=== PATIENT | female | born 1940 | race Caucasian/White ===

== ENCOUNTER → 2016-12-21 | Outpatient (CLI) | payer MEDICARE, BC | END | disposition home or self-care (01) | LOC: WOUND 14:00 | PROVIDERS: ATTEND Internal Medicine | DX: S81.801A Unspecified open wound, right lower leg, initial encounter (principal); I10 Essential (primary) hypertension; X58.XXXA Exposure to other specified factors, initial encounter; Y93.89 Activity, other specified; Y92.89 Other specified places as the place of occurrence of the external cause; Y99.8 Other external cause status | CPT/HCPCS: 97597; 97598; G0463; WOU0463 ==

== ENCOUNTER → 2016-12-26 | Outpatient (CLI) | payer MEDICARE, BC | END | disposition home or self-care (01) | LOC: WOUND 13:00 | PROVIDERS: ATTEND Internal Medicine | DX: S81.811D Laceration without foreign body, right lower leg, subsequent encounter (principal); I10 Essential (primary) hypertension; Z96.641 Presence of right artificial hip joint; Z90.710 Acquired absence of both cervix and uterus; Z98.49 Cataract extraction status, unspecified eye; X58.XXXD Exposure to other specified factors, subsequent encounter; Y92.89 Other specified places as the place of occurrence of the external cause; Y99.8 Other external cause status | CPT/HCPCS: 97597 ==

== ENCOUNTER → 2017-01-02 | Outpatient (CLI) | payer MEDICARE, BC | END | disposition home or self-care (01) | LOC: WOUND 15:33 | PROVIDERS: ATTEND Internal Medicine | DX: S81.801D Unspecified open wound, right lower leg, subsequent encounter (principal); I10 Essential (primary) hypertension; Z90.710 Acquired absence of both cervix and uterus; X58.XXXD Exposure to other specified factors, subsequent encounter | CPT/HCPCS: 11042 ==

== ENCOUNTER → 2017-01-16 | Outpatient (CLI) | payer MEDICARE, BC | END | disposition home or self-care (01) | LOC: WOUND 15:39 | PROVIDERS: ATTEND Internal Medicine | DX: S81.801D Unspecified open wound, right lower leg, subsequent encounter (principal); I10 Essential (primary) hypertension; Z90.710 Acquired absence of both cervix and uterus; Z96.641 Presence of right artificial hip joint; X58.XXXD Exposure to other specified factors, subsequent encounter | CPT/HCPCS: G0463; WOU0463 ==

== ENCOUNTER 2017-05-03 11:13 | Emergency (ER) | payer MEDICARE, BC ==
[~2017-05-03] VITALS: Ht 160 cm; Wt 64.4 kg
[2017-05-03 13:04] LABS: BASOPHILS # (AUTO) 0.02 x10^3/uL (0-0.1); BASOPHILS % (AUTO) 1 % (0-1); EOSINOPHILS % (AUTO) 2 % (1-7); LYMPHOCYTES # (AUTO) 1.07 x10^3/uL (1-3.4); LYMPHOCYTES % (AUTO) 25 % (22-44); MD NO; MEAN CORPUSCULAR HEMOGLOBIN 32.4 pg (27.0-34.8); MEAN CORPUSCULAR HGB CONC 33.6 g/dL (32.4-35.8); MEAN CORPUSCULAR VOLUME 96.4 fL (80-100); MEAN PLATELET VOLUME 11.1 fL (7.4-10.4); MONOCYTES # (AUTO) 0.44 x10^3/uL (0.2-0.8); MONOCYTES % (AUTO) 10 % (2-9); NEUTROPHILS # (AUTO) 2.63 x10^3/uL (1.8-6.8); NEUTROPHILS % (AUTO) 62 % (42-75); PLATELET COUNT 114 x10^3/uL (130-400); RED BLOOD COUNT 4.89 x10^6/uL (3.82-5.3); RED CELL DISTRIBUTION WIDTH 13.3 % (9.6-15.2)
[2017-05-03] MEDS ORDERED: CLON0.3T47 PO (13:07)
[2017-05-03 13:14] LABS: ALBUMIN 3.5 g/dL (3.4-5.0); ANION GAP 7 mmol/L (5-15); CALCIUM 9.5 mg/dL (8.5-10.1); CHLORIDE 103 mmol/L (98-107); CREATININE 0.86 mg/dL (0.55-1.02)
[2017-05-03 13:18] LABS: TROPONIN I < 0.015 ng/mL (0.000-0.045)
[2017-05-03 14:34] VITALS: BP 177/75
== END 2017-05-03 14:37 | disposition home or self-care (01) ==
LOC: ED 14:04
DX: I10 Essential (primary) hypertension (principal)
CPT/HCPCS: 36415; 70450; 71045; 80048; 82040; 84484; 85025; 93005; 99285

== ENCOUNTER 2017-05-06 03:46 | Emergency (ER) | payer MEDICARE, BC ==
[~2017-05-06] VITALS: Ht 160 cm; Wt 64.0 kg
[~2017-05-06 03:46] MED LIST: CLON0.3T47 PO
[2017-05-06] MEDS ORDERED: VALS1TAB24 PO (05:00)
[2017-05-06] MEDS ORDERED: ASPIRIN 81 MG TABLET CHEW ONE (05:23)
[2017-05-06] MEDS ORDERED: ASPIRIN 81 MG TABLET CHEW PO ONE (05:30)
[2017-05-06 05:35] LABS: BASOPHILS # (AUTO) 0.02 x10^3/uL (0-0.1); BASOPHILS % (AUTO) 0 % (0-1); EOSINOPHILS # (AUTO) 0.13 x10^3/uL (0-0.4); EOSINOPHILS % (AUTO) 3 % (1-7); LYMPHOCYTES # (AUTO) 1.09 x10^3/uL (1-3.4); LYMPHOCYTES % (AUTO) 25 % (22-44); MD NO; MEAN CORPUSCULAR HGB CONC 34.1 g/dL (32.4-35.8); MEAN CORPUSCULAR VOLUME 96.9 fL (80-100); MEAN PLATELET VOLUME 11.1 fL (7.4-10.4); MONOCYTES # (AUTO) 0.48 x10^3/uL (0.2-0.8); MONOCYTES % (AUTO) 11 % (2-9); NEUTROPHILS # (AUTO) 2.73 x10^3/uL (1.8-6.8); NEUTROPHILS % (AUTO) 61 % (42-75); PLATELET COUNT 110 x10^3/uL (130-400); RED CELL DISTRIBUTION WIDTH 13.6 % (9.6-15.2)
[2017-05-06 05:43] LABS: INTERNATIONAL NORMALIZED RATIO 1.07 (0.93-1.1); PROTHROMBIN TIME 11.1 Seconds (9.6-11.5)
[2017-05-06 05:46] LABS: ALANINE AMINOTRANSFERASE 30 U/L (12-78); ALBUMIN 3.5 g/dL (3.4-5.0); ANION GAP 7 mmol/L (5-15); CALCIUM 9.2 mg/dL (8.5-10.1); CHLORIDE 103 mmol/L (98-107); CREATININE 0.95 mg/dL (0.55-1.02)
[2017-05-06 05:50] LABS: ALKALINE PHOSPHATASE 55 U/L (45-117); BILIRUBIN,TOTAL 0.7 mg/dL (0.2-1.0); TOTAL PROTEIN 7.2 g/dL (6.4-8.2); TROPONIN I < 0.015 ng/mL (0.000-0.045)
[2017-05-06 08:59] VITALS: BP 119/60
== END 2017-05-06 09:00 | disposition home or self-care (01) ==
LOC: ED 05:05
DX: I10 Essential (primary) hypertension (principal); Z90.710 Acquired absence of both cervix and uterus
CPT/HCPCS: 36415; 71045; 80053; 83880; 84484; 85025; 85610; 85730; 93005; 99285

== ENCOUNTER → 2017-10-02 | Outpatient (CLI) | payer MEDICARE, BC ==
[~2017-10-02] MED LIST changes: +VALS1TAB24 PO
== END | disposition home or self-care (01) ==
LOC: WOUND 13:04
PROVIDERS: ATTEND Internal Medicine
DX: L97.212 Non-pressure chronic ulcer of right calf with fat layer exposed (principal); I10 Essential (primary) hypertension; Z96.651 Presence of right artificial knee joint; Z90.710 Acquired absence of both cervix and uterus
CPT/HCPCS: 97597; G0463; WOU0463

== ENCOUNTER 2018-04-24 23:20 | Emergency (ER) | payer MEDICARE, BC ==
[~2018-04-24] VITALS: Ht 160 cm; Wt 62.0 kg
[2018-04-24] MEDS ORDERED: LIDOCAINE 1%-EPI 1:100K, 30ML ONE (23:43)
[2018-04-24] MEDS ORDERED: LIDOCAINE-MPF 1%, 5ML ONE (23:43)
[2018-04-24] MEDS ORDERED: DIPH,PERTUSS(ACELL),TET VAC/PF 0.5 ML IM-VACC ONE (23:43)
[2018-04-25] MEDS ORDERED: LIDOCAINE 1%, 10ML INFIL ONE
[2018-04-25] MEDS ORDERED: DIPH,PERTUSS(ACELL),TET VAC/PF 0.5 ML IM-VACC ONE
[2018-04-25] MEDS ORDERED: LIDOCAINE GEL 2%, 5ML TP ONE
--- NOTE | 2018-04-25 00:07 | NUR ---
PT WITH LACERATION AND RING TO HER RIGHT RING FINGER. FINGER WAS LUBED AND RING REMOVED. RING WAS CLEANED AND HANDED TO PTS .
[2018-04-25] MEDS ORDERED: ACETAMINOPHEN 500 MG TABLET ONE (01:34)
[2018-04-25 01:43] VITALS: BP 157/88
[2018-04-25] MEDS ORDERED: ACETAMINOPHEN 500 MG TABLET PO ONE (02:00)
== END 2018-04-25 01:45 | disposition home or self-care (01) ==
LOC: ED 04-25 01:10
DX: S51.812A Laceration without foreign body of left forearm, initial encounter (principal); S89.91XA Unspecified injury of right lower leg, initial encounter; I10 Essential (primary) hypertension; Z90.710 Acquired absence of both cervix and uterus; W01.0XXA Fall on same level from slipping, tripping and stumbling without subsequent striking against object, initial encounter; Y93.89 Activity, other specified; Y92.410 Unspecified street and highway as the place of occurrence of the external cause; Y99.8 Other external cause status
CPT/HCPCS: 12032; 90471; 90715; 99284

== ENCOUNTER 2018-04-30 08:40 | Outpatient (CLI) | payer MEDICARE, BC | END 2018-04-30 23:59 | disposition home or self-care (01) | LOC: WOUND 08:40 | PROVIDERS: ATTEND Internal Medicine | DX: L97.212 Non-pressure chronic ulcer of right calf with fat layer exposed (principal); S61.512A Laceration without foreign body of left wrist, initial encounter; S51.011A Laceration without foreign body of right elbow, initial encounter; S60.416A Abrasion of right little finger, initial encounter; S60.414A Abrasion of right ring finger, initial encounter; S60.412A Abrasion of right middle finger, initial encounter; I10 Essential (primary) hypertension; Z96.651 Presence of right artificial knee joint; Z90.710 Acquired absence of both cervix and uterus; X58.XXXA Exposure to other specified factors, initial encounter; Y93.89 Activity, other specified; Y92.89 Other specified places as the place of occurrence of the external cause; Y99.8 Other external cause status | CPT/HCPCS: G0463 ==

== ENCOUNTER → 2018-05-05 | Outpatient (CLI) | payer MEDICARE, BC | END | disposition home or self-care (01) | LOC: WOUND 14:24 | PROVIDERS: ATTEND Internal Medicine | DX: L97.212 Non-pressure chronic ulcer of right calf with fat layer exposed (principal); S41.102D Unspecified open wound of left upper arm, subsequent encounter; S51.001D Unspecified open wound of right elbow, subsequent encounter; I10 Essential (primary) hypertension; Z90.710 Acquired absence of both cervix and uterus; X58.XXXD Exposure to other specified factors, subsequent encounter | CPT/HCPCS: 97597 ==

== ENCOUNTER → 2018-05-12 | Outpatient (CLI) | payer MEDICARE, BC | END | disposition home or self-care (01) | LOC: WOUND 14:07 | PROVIDERS: ATTEND Family Medicine | DX: L97.212 Non-pressure chronic ulcer of right calf with fat layer exposed (principal); S61.512D Laceration without foreign body of left wrist, subsequent encounter; S60.412D Abrasion of right middle finger, subsequent encounter; S60.414D Abrasion of right ring finger, subsequent encounter; S60.416D Abrasion of right little finger, subsequent encounter; S51.011D Laceration without foreign body of right elbow, subsequent encounter; I10 Essential (primary) hypertension; Z90.710 Acquired absence of both cervix and uterus; W22.8XXD Striking against or struck by other objects, subsequent encounter | CPT/HCPCS: G0463 ==

== ENCOUNTER 2018-05-28 13:00 | Outpatient (CLI) | payer MEDICARE, BC | END 2018-05-28 23:59 | disposition home or self-care (01) | LOC: WOUND 13:00 | PROVIDERS: ATTEND Internal Medicine | DX: L97.212 Non-pressure chronic ulcer of right calf with fat layer exposed (principal); S81.801D Unspecified open wound, right lower leg, subsequent encounter; S41.102D Unspecified open wound of left upper arm, subsequent encounter; S51.001D Unspecified open wound of right elbow, subsequent encounter; I10 Essential (primary) hypertension; Z90.710 Acquired absence of both cervix and uterus; X58.XXXD Exposure to other specified factors, subsequent encounter | CPT/HCPCS: G0463 ==

== ENCOUNTER → 2018-08-27 | Outpatient (CLI) | payer BC, MEDICARE | END | disposition home or self-care (01) | LOC: WOUND 10:11 | PROVIDERS: ATTEND Internal Medicine | DX: S81.811A Laceration without foreign body, right lower leg, initial encounter (principal); I10 Essential (primary) hypertension; X58.XXXA Exposure to other specified factors, initial encounter; Y93.89 Activity, other specified; Y99.8 Other external cause status; Y92.89 Other specified places as the place of occurrence of the external cause; Z96.651 Presence of right artificial knee joint; Z90.710 Acquired absence of both cervix and uterus | CPT/HCPCS: 97597; 97598; G0463 ==

== ENCOUNTER → 2018-09-03 | Outpatient (CLI) | payer MEDICARE, BC | END | disposition home or self-care (01) | LOC: WOUND 14:23 | PROVIDERS: ATTEND Internal Medicine | DX: S81.811D Laceration without foreign body, right lower leg, subsequent encounter (principal); I10 Essential (primary) hypertension; X58.XXXD Exposure to other specified factors, subsequent encounter | CPT/HCPCS: 97597; 97598 ==

== ENCOUNTER → 2018-09-03 | Outpatient (CLI) | payer MEDICARE, BC | END | disposition home or self-care (01) | LOC: CFH 14:51 | PROVIDERS: ATTEND Internal Medicine | DX: M79.604 Pain in right leg (principal); L97.812 Non-pressure chronic ulcer of other part of right lower leg with fat layer exposed ==

== ENCOUNTER → 2018-09-08 | Outpatient (CLI) | payer MEDICARE, BC | END | disposition home or self-care (01) | LOC: WOUND 14:20 | PROVIDERS: ATTEND Internal Medicine | DX: L97.812 Non-pressure chronic ulcer of other part of right lower leg with fat layer exposed (principal); I10 Essential (primary) hypertension; Z96.651 Presence of right artificial knee joint; Z90.710 Acquired absence of both cervix and uterus | CPT/HCPCS: 11042; 11045 ==

== ENCOUNTER → 2018-09-17 | Outpatient (CLI) | payer MEDICARE, BC | END | disposition home or self-care (01) | LOC: WOUND 13:03 | PROVIDERS: ATTEND Internal Medicine Cardiovascular Disease | DX: L97.812 Non-pressure chronic ulcer of other part of right lower leg with fat layer exposed (principal); I10 Essential (primary) hypertension; Z90.710 Acquired absence of both cervix and uterus; Z96.651 Presence of right artificial knee joint | CPT/HCPCS: G0463 ==

== ENCOUNTER → 2018-09-22 | Outpatient (CLI) | payer MEDICARE, BC | END | disposition home or self-care (01) | LOC: WOUND 14:56 | PROVIDERS: ATTEND Internal Medicine | DX: L97.812 Non-pressure chronic ulcer of other part of right lower leg with fat layer exposed (principal); I10 Essential (primary) hypertension; Z96.651 Presence of right artificial knee joint; Z90.710 Acquired absence of both cervix and uterus | CPT/HCPCS: 97597 ==

== ENCOUNTER → 2018-09-29 | Outpatient (CLI) | payer MEDICARE, BC | END | disposition home or self-care (01) | LOC: WOUND 14:06 | PROVIDERS: ATTEND Internal Medicine | DX: L97.812 Non-pressure chronic ulcer of other part of right lower leg with fat layer exposed (principal); I10 Essential (primary) hypertension; Z96.651 Presence of right artificial knee joint; Z90.710 Acquired absence of both cervix and uterus | CPT/HCPCS: 97597 ==

== ENCOUNTER → 2018-10-06 | Outpatient (CLI) | payer MEDICARE, BC | END | disposition home or self-care (01) | LOC: WOUND 14:02 | PROVIDERS: ATTEND Internal Medicine | DX: L97.812 Non-pressure chronic ulcer of other part of right lower leg with fat layer exposed (principal); I10 Essential (primary) hypertension; Z96.651 Presence of right artificial knee joint; Z90.710 Acquired absence of both cervix and uterus | CPT/HCPCS: 97597 ==

== ENCOUNTER → 2018-10-13 | Outpatient (CLI) | payer MEDICARE, BC | END | disposition home or self-care (01) | LOC: WOUND 14:06 | PROVIDERS: ATTEND Internal Medicine | DX: L97.812 Non-pressure chronic ulcer of other part of right lower leg with fat layer exposed (principal); I10 Essential (primary) hypertension; Z96.651 Presence of right artificial knee joint; Z90.710 Acquired absence of both cervix and uterus | CPT/HCPCS: 97597 ==

== ENCOUNTER 2018-10-27 14:37 | Outpatient (CLI) | payer MEDICARE, BC | END 2018-10-27 23:59 | disposition home or self-care (01) | LOC: WOUND 14:37 | PROVIDERS: ATTEND Internal Medicine | DX: L97.812 Non-pressure chronic ulcer of other part of right lower leg with fat layer exposed (principal); I10 Essential (primary) hypertension; Z96.651 Presence of right artificial knee joint; Z90.710 Acquired absence of both cervix and uterus | CPT/HCPCS: 97597 ==

== ENCOUNTER 2018-11-10 14:38 | Outpatient (CLI) | payer MEDICARE, BC | END 2018-11-10 23:59 | disposition home or self-care (01) | LOC: WOUND 14:38 | PROVIDERS: ATTEND Internal Medicine | DX: L97.812 Non-pressure chronic ulcer of other part of right lower leg with fat layer exposed (principal); I10 Essential (primary) hypertension; Z96.651 Presence of right artificial knee joint; Z90.710 Acquired absence of both cervix and uterus | CPT/HCPCS: 97597 ==

== ENCOUNTER 2018-11-24 14:30 | Outpatient (CLI) | payer MEDICARE, BC | END 2018-11-24 23:59 | disposition home or self-care (01) | LOC: WOUND 14:30 | PROVIDERS: ATTEND Internal Medicine | DX: L97.812 Non-pressure chronic ulcer of other part of right lower leg with fat layer exposed (principal); I10 Essential (primary) hypertension; Z96.651 Presence of right artificial knee joint; Z90.710 Acquired absence of both cervix and uterus | CPT/HCPCS: 17250 ==

== ENCOUNTER 2018-12-15 13:34 | Outpatient (CLI) | payer MEDICARE, BC | END 2018-12-15 23:59 | disposition home or self-care (01) | LOC: WOUND 13:34 | PROVIDERS: ATTEND Internal Medicine | DX: L97.812 Non-pressure chronic ulcer of other part of right lower leg with fat layer exposed (principal); I10 Essential (primary) hypertension; Z96.651 Presence of right artificial knee joint; Z90.710 Acquired absence of both cervix and uterus | CPT/HCPCS: 97597 ==

== ENCOUNTER → 2019-02-11 | Outpatient (CLI) | payer MEDICARE, BC | END | disposition home or self-care (01) | LOC: WOUND 13:00 | PROVIDERS: ATTEND Internal Medicine | DX: L97.812 Non-pressure chronic ulcer of other part of right lower leg with fat layer exposed (principal); I10 Essential (primary) hypertension; Z96.651 Presence of right artificial knee joint; Z90.710 Acquired absence of both cervix and uterus | CPT/HCPCS: 97597 ==

== ENCOUNTER → 2019-02-18 | Outpatient (CLI) | payer MEDICARE, BC | END | disposition home or self-care (01) | LOC: WOUND 14:41 | PROVIDERS: ATTEND Internal Medicine | DX: L97.818 Non-pressure chronic ulcer of other part of right lower leg with other specified severity (principal); I10 Essential (primary) hypertension; Z96.651 Presence of right artificial knee joint; Z90.710 Acquired absence of both cervix and uterus | CPT/HCPCS: G0463 ==

== ENCOUNTER → 2019-02-26 | Outpatient (CLI) | payer MEDICARE, BC ==
[~2019-02-26] MED LIST changes: +ASPI-496 PO; +CHERATUSSIN AC PO; +CLON0.1T22 PO; +DILT180C76 PO; +HYDROCHLOROTH12.5 MG PO; +IRBE150T25 PO; +MOME17SP NS; +OMEG1CAP23 PO; +hormone cream
[2019-02-26 12:02] LABS: ALANINE AMINOTRANSFERASE 36 U/L (12-78); ALBUMIN 3.4 g/dL (3.4-5.0); ANION GAP 4 mmol/L (5-15); CALCIUM 9.8 mg/dL (8.5-10.1); CHLORIDE 104 mmol/L (98-107); CREATININE 0.96 mg/dL (0.55-1.02)
[2019-02-26 12:05] LABS: ALKALINE PHOSPHATASE 48 U/L (45-117); BILIRUBIN,TOTAL 0.4 mg/dL (0.2-1.0); TOTAL PROTEIN 7.6 g/dL (6.4-8.2)
== END | disposition home or self-care (01) ==
LOC: STAR 10:21
PROVIDERS: ATTEND Surgery
DX: Z01.818 Encounter for other preprocedural examination (principal); K43.6 Other and unspecified ventral hernia with obstruction, without gangrene; Z88.2 Allergy status to sulfonamides
CPT/HCPCS: 36415; 80053; 93005

== ENCOUNTER 2019-03-10 06:57 | Day surgery (SDC) | payer MEDICARE, BC ==
[~2019-03-10] VITALS: Ht 160 cm; Wt 64.1 kg
[2019-03-10] MEDS ORDERED: FENTANYL PF 250 MCG/5ML ONE (07:36)
[2019-03-10] MEDS ORDERED: DEXAMETHASONE 4 MG/ML, 1ML ONE (07:39)
[2019-03-10] MEDS ORDERED: GLYCOPYRROLATE 0.2MG/1ML, 5ML ONE (07:39)
[2019-03-10] MEDS ORDERED: ROCURONIUM 10MG/ML,5ML ONE (07:39)
[2019-03-10] MEDS ORDERED: NEOSTIGMINE 1 MG/ML, 10ML ONE (07:39)
[2019-03-10] MEDS ORDERED: ONDANSETRON 2MG/ML, 2ML ONE (07:39)
[2019-03-10] MEDS ORDERED: PROPOFOL 10 MG/ML, 20ML ONE (07:39)
[2019-03-10] MEDS ORDERED: CEFAZOLIN 1,000 MG ONE (07:39)
[2019-03-10 08:02] VITALS: BP 129/86
[2019-03-10] MEDS ORDERED: LACTATED RINGERS 1,000 ML IV SCH (08:07)
[2019-03-10] MEDS ORDERED: HYDROmorphone 2 MG/ML, 1ML IVPush PRN (08:30)
[2019-03-10] MEDS ORDERED: GABAPENTIN 300 MG CAPSULE PO ONE (08:30)
[2019-03-10] MEDS ORDERED: ACETAMINOPHEN 500 MG TABLET PO ONE (08:30)
[2019-03-10] MEDS ORDERED: HALOPERIDOL 5 MG/ML IV PRN (08:30)
[2019-03-10] MEDS ORDERED: PROMETHAZINE 25 MG/ML, 1ML IV PRN (08:30)
[2019-03-10] MEDS ORDERED: FENTANYL PF 100 MCG/2ML IV PRN (08:30)
[2019-03-10] MEDS ORDERED: OXYcodone 5 MG/5 ML ORAL.SOL UDC PO PRN (08:30)
[2019-03-10] MEDS ORDERED: MORPHINE SULFATE 4 MG/ML, 1ML IVPush PRN (08:30)
[2019-03-10] MEDS ORDERED: MEPERIDINE/PF 25MG/ML,1ML IVPush PRN (08:30)
[2019-03-10] MEDS ORDERED: hydrALAzine 20 MG/ML, 1ML IV PRN (08:30)
[2019-03-10] MEDS ORDERED: LABETALOL 5MG/ML, 20ML IV PRN (08:30)
[2019-03-10] MEDS ORDERED: EPINEPHRINE 1 MG/ML, 1ML ONE (09:30)
[2019-03-10] MEDS ORDERED: BUPIVACAINE/PF 0.5% ONE (09:30)
[2019-03-10] MEDS ORDERED: KETOROLAC 30 MG/1 ML ONE (10:29)
[2019-03-10] MEDS ORDERED: KETOROLAC 30 MG/1 ML IVPush ONE (10:30)
[2019-03-10] MEDS ORDERED: OXYcodone 5 MG/5 ML ORAL.SOL UDC ONE (10:52)
== END 2019-03-10 13:45 | disposition home or self-care (01) ==
LOC: OUT 06:57
PROVIDERS: ATTEND Surgery
DX: K43.6 Other and unspecified ventral hernia with obstruction, without gangrene (principal); I10 Essential (primary) hypertension; R63.5 Abnormal weight gain; Z88.2 Allergy status to sulfonamides; Z79.82 Long term (current) use of aspirin; Z79.899 Other long term (current) drug therapy; Z98.890 Other specified postprocedural states; Z82.49 Family history of ischemic heart disease and other diseases of the circulatory system
CPT/HCPCS: 49561; 49568; C1781; J0171; J0690; J1100; J1885; J2405; J2704; J2710; J3010; J7120

== ENCOUNTER 2020-06-24 11:09 | Outpatient (CLI) | payer BC, MEDICARE ==
[~2020-06-24 11:09] MED LIST changes: +CLON0.3T PO; -CLON0.3T47 PO; -IRBE150T25 PO; +IRBE150T9 PO; -VALS1TAB24 PO; +VALS1TAB25 PO
== END 2020-06-24 23:59 | disposition home or self-care (01) ==
LOC: WOUND 11:09
PROVIDERS: ATTEND Internal Medicine
DX: I87.323 Chronic venous hypertension (idiopathic) with inflammation of bilateral lower extremity (principal); Z90.710 Acquired absence of both cervix and uterus; Z96.641 Presence of right artificial hip joint; Z96.651 Presence of right artificial knee joint; Z79.82 Long term (current) use of aspirin; Z79.899 Other long term (current) drug therapy; Z88.2 Allergy status to sulfonamides
CPT/HCPCS: G0463